=== PATIENT | male | born 1950 | race Caucasian/White ===

== ENCOUNTER → 2017-12-30 | Outpatient (CLI) | payer MEDICARE, BC ==
[~2017-12-30] MED LIST: ASPI1TAB57 PO; ATOR20TA15 PO; FISH100020 PO; FLUT1SPR5 EACH NARE; GLUC500T4 PO; LOSA50TA PO; METO25TA3 PO; MULT-65 PO; PERC5TAB12 PO
[2017-12-30 14:09] LABS: PROTHROMBIN TIME - PATIENT 10.6 SEC (9.8-11.6)
[2017-12-30 14:10] LABS: HEMATOCRIT 40.5 % (39.0-51.0); HEMOGLOBIN 13.9 GM/DL (13.0-17.0); MEAN CELL VOLUME 92.8 FL (80.0-100.0); MEAN CORPUSCULAR HEMOGLOBIN 31.9 PG (27.0-34.0); MEAN CORPUSCULAR HGB CONC 34.4 % (32.0-36.0); MEAN PLATELET VOLUME 7.5 FL (7.0-11.0); PLATELET COUNT 193 TH/MM3 (150-450); RED BLOOD COUNT 4.36 MIL/MM3 (4.50-5.90); RED CELL DISTRIBUTION WIDTH 13.2 % (11.6-17.2); WHITE BLOOD COUNT 3.8 TH/MM3 (4.0-11.0)
[2017-12-30 14:35] LABS: BICARBONATE 33.8 MEQ/L (21.0-32.0); CALCIUM 9.4 MG/DL (8.5-10.1); CREATININE 0.9 MG/DL (0.60-1.30)
--- NOTE | 2017-12-31 13:28 | EKG ---
Date Performed: 12/30/2017 Time Performed: 13:14:50 PTAGE: 67 years EKG: Sinus rhythm NORMAL ECG NO PREVIOUS TRACING DOCTOR: Alexys Batres Interpretating Date/Time 12/31/2017 13:24:53
== END ==
LOC: CPRE 12:47
PROVIDERS: ATTEND Surgery
DX: Z01.810 Encounter for preprocedural cardiovascular examination (principal); Z01.812 Encounter for preprocedural laboratory examination; I65.21 Occlusion and stenosis of right carotid artery
CPT/HCPCS: 36415; 80048; 85027; 85610; 93005

== ENCOUNTER 2018-01-03 06:45 | Inpatient (IN) | payer MEDICARE, BC ==
[~2018-01-03] VITALS: Ht 172.7 cm; Wt 74.5 kg
[~2018-01-03 06:45] MED LIST changes: -METO25TA3 PO; -PERC5TAB12 PO
[2018-01-03] MEDS ORDERED: PROTAMINE SULFATE 50 MG/5 ML VIAL ONE (07:15)
[2018-01-03] MEDS ORDERED: THROMBIN (TOPICAL) 20,000 UNIT SPRAY KIT ONE (07:16)
[2018-01-03] MEDS ORDERED: BUPIVACAINE HCL PF 0.5% 30 ML VIAL ONE (07:16)
[2018-01-03] MEDS ORDERED: HEPARIN SODIUM - SQ 10,000 UNITS/ML VIAL ONE (07:16)
[2018-01-03] MEDS ORDERED: HEPARIN-NS/PF INJ 500 ML ONE (07:16)
[2018-01-03] MEDS ORDERED: INSULIN HUMAN REGULAR 1,000 UNITS/10 ML VIAL SQ PRN (07:45)
[2018-01-03] MEDS ORDERED: CHLORHEXIDINE GLUCONATE 2 % 1 PACK (2 CLOTHS) TOPICAL PRN (07:45)
[2018-01-03] MEDS ORDERED: POVIDONE IODINE 5% (ANTISEPSIS KIT) 4 APPLICATIONS EACH NARE PRN (07:45)
[2018-01-03] MEDS ORDERED: SODIUM CHLORID 0.9% 500 ML IV PRN (07:45)
[2018-01-03] MEDS ORDERED: METOPROLOL TARTRATE 25 MG TAB PO PRN (07:45)
[2018-01-03] MEDS ORDERED: LACTATED RINGER'S 1000 ML IV PRN (07:45)
[2018-01-03] MEDS ORDERED: MIDAZOLAM HCL 2 MG/2 ML VIAL ONE (07:59)
[2018-01-03] MEDS ORDERED: DEXAMETHASONE SOD PHOS 4 MG/ML VIAL ONE (07:59)
[2018-01-03] MEDS ORDERED: FAMOTIDINE 20 MG/2 ML VIAL ONE (08:00)
[2018-01-03] MEDS ORDERED: ACETAMINOPHEN 1000 MG/100 ML 100 ML IV ONE (08:00)
[2018-01-03] MEDS ORDERED: NITROGLYCERIN INJ 5 ML ONE (08:04)
[2018-01-03] MEDS ORDERED: ceFAZolin 2 GM PREMIX 50 ML ONE (08:05)
--- NOTE | 2018-01-03 08:41 | PD.VS.PN ---
Pre-operative Note Pre-operative diagnosis: Asymptomatic R carotid stenosis Planned procedure: R CEA Interval History: R CEA Blood: T&S Imaging: CTA (AMBRIZ) 11/11 reviewed - high grade RIGHT carotid stenosis Orders: NPO Ancef 2g IV OCTOR Post-operative destination: CVICU Operative site marked: Yes Consent: Informed consent has been obtained from Casper Beltran. I have explained the procedure in detail and discussed the risks, benefits, and potential complications. All questions have been answered. Patient contact information: [phone] Tal Hendricks MD Jan 03, 2018 08:41
[2018-01-03] MEDS ORDERED: HEPARIN SODIUM - IV 10,000 UNITS/10 ML VIAL ONE (09:27)
--- NOTE | 2018-01-03 10:59 | HHI.PR ---
cc: Tal Hendricks MD Immediate Post Op Note Procedure Date: Jan 03, 2018 Pre Op Diagnosis: Asymptomatic R carotid stenosis Post Op Diagnosis: Asymptomatic R carotid stenosis Surgeon: Tal Hendricks Stock Preparation Operator(s): Chyna Liu Procedure: R CEA Findings: dense calcific plaque Additional Information: awoke neurologically intact Complications: none Specimen(s) removed: plaque, not for pathology Estimated blood loss: 100mL Anesthesia: General Drains: None Fluids: 1800mL IVF Urinary Output (mLs): 500 Patient to: CVICU Patient Condition: Good Implant/Devices: SEE IMPLANT LOG (if applicable) Date/Time of Procedure: SEE SURGICAL CARE RECORD Tal Hendricks MD Jan 03, 2018 10:58
[2018-01-03] MEDS ORDERED: MORPHINE SULFATE 4 MG/ML INJ IV PUSH PRN (11:00)
[2018-01-03] MEDS ORDERED: SENNOSIDES 8.6 MG TAB PO PRN (11:00)
[2018-01-03] MEDS ORDERED: MAGNESIUM HYDROXIDE SUSP 30 ML CUP PO PRN (11:00)
[2018-01-03] MEDS ORDERED: BISACODYL 10 MG SUPP RECTAL PRN (11:00)
[2018-01-03] MEDS ORDERED: LACTULOSE SYRUP 20 GM/30 ML CUP PO PRN (11:00)
[2018-01-03] MEDS ORDERED: HYDROmorphone HCL 2 MG TAB PO PRN (11:00)
[2018-01-03 11:04] VITALS: BP_SYST 143; BP_SYST 179; BP_DIAS 78; BP_DIAS 92; PULSE 60; RESP 12; TEMP 95; O2SAT 98
[2018-01-03] MEDS ORDERED: PHENYLEPHRINE HCL 10 MG/ML VIAL IV ONE (12:00)
[2018-01-03] MEDS ORDERED: LABETALOL HCL 100 MG/20 ML VIAL IV ONE (12:00)
[2018-01-03] MEDS ORDERED: DEXAMETHASONE SOD PHOS 4 MG/ML VIAL IV ONE (12:00)
[2018-01-03] MEDS ORDERED: PROPOFOL 200 MG/20 ML AMP IV ONE (12:00)
[2018-01-03] MEDS ORDERED: ROCURONIUM INJ 50 MG/5 ML SYRINGE IV PUSH ONE (12:00)
[2018-01-03] MEDS ORDERED: NORMOSOL R INJ 1,000 ML IV ONE (12:00)
[2018-01-03] MEDS ORDERED: NEOSTIGMINE 5 MG/5 ML SYRINGE IV PUSH ONE (12:00)
[2018-01-03] MEDS ORDERED: ePHEDrine/NS 25 MG/5 ML SYRINGE IV ONE (12:00)
[2018-01-03] MEDS ORDERED: SODIUM CHLORID 0.9% 500 ML INJ 500 ML IV ONE (12:00)
[2018-01-03] MEDS ORDERED: GLYCOPYRROLATE 1 MG/5 ML SYRINGE IV PUSH ONE (12:00)
[2018-01-03] MEDS ORDERED: LIDOCAINE HCL 1% PF 5 ML SYRINGE OTHER ONE (12:00)
[2018-01-03] MEDS ORDERED: hydrALAZINE HCL 20 MG/ML VIAL IV ONE ×2 (13:15)
[2018-01-03] MEDS: ENOXAPARIN SODIUM 40 MG/0.4 ML SYRINGE SQ SCH (13:23)
[2018-01-03 15:10] VITALS: BP 112/48; PULSE 77; RESP 17; TEMP 97.6; O2SAT 94
[2018-01-03 15:13] VITALS: PULSE 77
[2018-01-03 19:00] VITALS: BP_SYST 138; BP_SYST 146; BP_DIAS 53; BP_DIAS 68; PULSE 76; RESP 16; TEMP 97.9; O2SAT 96
--- NOTE | 2018-01-03 20:27 | PD.CONS ---
HPI Service Critical Care Medicine Consult Requested By Dr. Hendricks Reason for Consult Hypertension Primary Care Physician Nona Mead MD History of Present Illness 67-year-old male with a medical history significant for hypertension, COPD, cardiovascular disease who underwent right carotid endarterectomy under general anesthesia by Dr. Hendricks, tolerated procedure well and was subsequently transferred to CVICU. Critical care consult was requested for hypertension as patient developed a systolic blood pressure in the 200s. I immediately ordered hydralazine 20 mg IV as well as a Cleviprex drip if needed. I evaluated the patient in CVICU. At that time he was resting in bed comfortably not in any acute distress. He denied any chest pain or shortness of breath. Denied any nausea or headache visual disturbance, focal weakness. Review of Systems ROS Per history of present illness Past Family Social History Allergies: Coded Allergies: No Known Allergies (Unverified , 12/30/17) Past Medical History COPD, chronic bronchus, hypertension, cardiac vascular disease Past Surgical History Shrapnel removal from extremities Reported Medications Please see med rec. Active Ordered Medications Current Medications Protamine Sulfate (Protamine Sulfate Inj) 100 mg STK-MED ONCE .ROUTE ; Start at 07:15; Stop 01/03/18 at 07:16; Status DC Bupivacaine HCl (Marcaine Pf 0.5% Inj) 30 ml STK-MED ONCE .ROUTE Last administered on 01/03/18at 07:16; Start 01/03/18 at 07:16; Stop 01/03/18 at 07:17 ; Status DC Heparin Sodium (Porcine) (Heparin Inj) 10,000 units STK-MED ONCE .ROUTE ; Start 01/03/18 at 07:16; Stop 01/03/18 at 07:17; Status DC Thrombin (Thrombin Top Harmon) 20,000 units STK-MED ONCE .ROUTE Last administered on 01/03/18at 07:16; Start 01/03/18 at 07:16; Stop 01/03/18 at 07:17 ; Status DC Heparin Sodium/ Sodium Chloride 500 ml @ As Directed STK-MED ONCE .ROUTE Last administered on 01/03/18at 07:16; Start 01/03/18 at 07:16; Stop 01/03/18 at 07:17 ; Status DC Lactated Ringer's 1,000 ml @ 30 mls/hr Q24H PRN IV SEE LABEL COMMENTS Last administered on 01/03/18at 07:30; Start 01/03/18 at 07:45; Stop 01/06/18 at 07:44 Sodium Chloride 500 ml @ 30 mls/hr [id number] PRN IV SEE LABEL COMMENTS; Start at 07:45; Stop 01/06/18 at 07:44 Metoprolol Tartrate (Lopressor) 25 mg ASSEM[employer]ER [employer]NCE PRN PO SEE LABEL COMMENTS; Start 01/03/18 at 07:45; Stop 01/06/18 at 07:44 Povidone Iodine (Betadine 5% Antisepsis Kit) 1 applic [employer]CE PRN EACH NARE SEE LABEL COMMENTS Last administered on 01/03/18at 07:30; Start 01/03/18 at 07:45 ; Stop 01/06/18 at 07:44 Chlorhexidine Gluconate (Chlorhexidine 2% Cloth) 3 pack [employer] PRN TOPICAL SEE LABEL COMMENTS Last administered on 01/03/18at 07:00; Start 01/03/18 at 07:45 ; Stop 01/06/18 at 07:44 Insulin Human Regular (NovoLIN R INJ) See Protocol Table ... [employer] PRN SQ SEE PROTOCOL TABLE; Start 01/03/18 at 07:45; Stop 01/06/18 at 07:44 Midazolam HCl (Versed Inj) 2 mg STK-MED ONCE .ROUTE ; Start 01/03/18 at 07:59; Stop 01/03/18 at 08:00; Status DC Dexamethasone Sodium Phosphate (Decadron Inj) 4 mg STK-MED ONCE .ROUTE ; Start 01/03/18 at 07:59; Stop 01/03/18 at 08:00; Status DC Acetaminophen 100 ml @ As Directed STK-MED ONCE IV ; Start 01/03/18 at 08:00; Stop 01/03/18 at 08:01; Status DC Famotidine (Pepcid Inj) 20 mg STK-MED ONCE .ROUTE ; Start 01/03/18 at 08:00; Stop 01/03/18 at 08:01; Status DC Nitroglycerin 5 ml @ As Directed STK-MED ONCE .ROUTE ; Start 01/03/18 at 08:04; Stop 01/03/18 at 08:05; Status DC Cefazolin Sodium/ Dextrose 50 ml @ As Directed STK-MED ONCE .ROUTE Last administered on 01/03/18at 09:23; Start 01/03/18 at 08:05; Stop 01/03/18 at 08:06 ; Status DC Heparin Sodium (Porcine) (Heparin Inj) 10,000 units STK-MED ONCE .ROUTE ; Start 01/03/18 at 09:27; Stop 01/03/18 at 09:28; Status DC Aspirin (Aspirin) 325 mg DAILY PO ; Start 01/04/18 at 09:00 Famotidine (Pepcid) 20 mg BID PO ; Start 01/03/18 at 21:00 Atorvastatin Calcium (Lipitor) 40 mg HS PO ; Start 01/03/18 at 21:00 Oxycodone HCl (Roxicodone) 5 mg Q4H PRN PO PAIN SCALE 1 TO 5; Start 01/03/18 at 11:00 Hydromorphone HCl (Dilaudid) 2 mg Q4H PRN PO PAIN SCALE 6 TO 10; Start at 11:00 Morphine Sulfate (Morphine Inj) 2 mg Q1H PRN IV PUSH BREAKTHROUGH PAIN; Start 01/03/18 at 11:00 Enoxaparin Sodium (Lovenox Inj) 40 mg Q24H SQ Last administered on 01/03/18at 13 :23; Start 01/03/18 at 13:00 Senna/Docusate Sodium (Keyanna-Colace) 1 tab BID PO ; Start 01/03/18 at 21:00 Magnesium Hydroxide (Milk Of Magnesia Liq) 30 ml Q12H PRN PO Mild constipation ; Start 01/03/18 at 11:00 Sennosides (Senokot) 17.2 mg Q12H PRN PO Moderate constipation; Start 01/03/18 at 11:00 Bisacodyl (Dulcolax Supp) 10 mg DAILY PRN RECTAL SEVERE CONSITIPATION; Start at 11:00 Lactulose (Lactulose Liq) 30 ml DAILY PRN PO SEVERE CONSITIPATION; Start at 11:00 Fentanyl Citrate (fentaNYL INJ) 100 mcg STK-MED ONCE .ROUTE ; Start 01/03/18 at 11:26; Stop 01/03/18 at 11:27; Status DC Fentanyl Citrate (fentaNYL INJ) 100 mcg STK-MED ONCE .ROUTE ; Start 01/03/18 at 11:27; Stop 01/03/18 at 11:28; Status DC Fentanyl Citrate (fentaNYL INJ) 100 mcg STK-MED ONCE .ROUTE ; Start 01/03/18 at 11:27; Stop 01/03/18 at 11:28; Status DC Hydralazine HCl (Apresoline Inj) 10 mg NOW ONCE IV Last administered on at 14:30; Start 01/03/18 at 13:15; Stop 01/03/18 at 13:16; Status DC Hydralazine HCl (Apresoline Inj) 20 mg NOW ONCE IV Last administered on at 14:31; Start 01/03/18 at 13:15; Stop 01/03/18 at 13:16; Status DC Clevidipine 50 ml @ 2 mls/hr TITRATE PRN IV High blood pressure; Start at 14:00 Family History Noncontributory at this time Social History Ex-smoker Physical Exam Vital Signs Vital Signs Date Time Temp Pulse Resp B/P (MAP) Pulse Ox O2 Delivery O2 Flow Rate FiO2 01/03/18 15:13 77 01/03/18 15:12 98 Nasal Cannula 3.00 01/03/18 15:10 97.6 77 17 112/48 (69) 94 01/03/18 11:04 98 Nasal Cannula 4.00 01/03/18 11:04 95.0 60 12 143/92 (109) 98 179/78 (111) 01/03/18 07:22 97.9 94 20 219/106 (143) 98 Physical Exam HEENT/Neuro: No pallor or icterus, tongue moist, AG, Awake alert oriented 3 , nonfocal grossly, moving all 4 extremities Neck: No JVD. Gregory over right CEA site noted. Chest/pulmonary: CTA bilaterally Cardiovascular: S1-S2 regular no gallop or murmur GI/abdomen: Soft, nontender, bowel sounds present Extremities: Warm bilaterally, no edema Assessment and Plan Assessment and Plan 67-year-old male with: Asymptomatic carotid stenosis status post right CEA Hypertension COPD Plan Initiated hydralazine when necessary. Will use Cleviprex. As needed for hypertension. Expect blood pressure fluctuations as well as heart rate fluctuations in immediate post carotid endarterectomy state. Critical care will be available as needed and will follow when necessary Further postop recommendations per vascular surgery. Will see prn. Monroe Yoder MD Jan 03, 2018 20:27
[2018-01-03 20:40] VITALS: O2SAT 96
[2018-01-03] MEDS: DOCUSATE SODIUM 50 MG/SENNA 8.6 MG TAB PO SCH (21:16)
[2018-01-03] MEDS: FAMOTIDINE 20 MG TAB PO SCH (21:16)
[2018-01-03] MEDS: ATORVASTATIN 40 MG TAB PO SCH (21:16)
[2018-01-03 23:00] VITALS: BP_SYST 131; BP_SYST 148; BP_DIAS 48; BP_DIAS 79; PULSE 70; PULSE 76; RESP 14; TEMP 98; O2SAT 96
[2018-01-04] VITALS (7 sets, daily range): BP systolic 138–188; BP diastolic 47–83; PULSE 72–102; RESP 14–18; TEMP 98.1–98.7; O2SAT 92–99
[2018-01-04 05:14] LABS: HEMATOCRIT 34.9 % (39.0-51.0); HEMOGLOBIN 12.2 GM/DL (13.0-17.0); MEAN CELL VOLUME 92.6 FL (80.0-100.0); MEAN CORPUSCULAR HEMOGLOBIN 32.5 PG (27.0-34.0); MEAN CORPUSCULAR HGB CONC 35.1 % (32.0-36.0); MEAN PLATELET VOLUME 7.3 FL (7.0-11.0); PLATELET COUNT 190 TH/MM3 (150-450); RED BLOOD COUNT 3.77 MIL/MM3 (4.50-5.90); RED CELL DISTRIBUTION WIDTH 13.2 % (11.6-17.2); WHITE BLOOD COUNT 7.8 TH/MM3 (4.0-11.0)
[2018-01-04 05:40] LABS: BICARBONATE 29.1 MEQ/L (21.0-32.0); CALCIUM 8.5 MG/DL (8.5-10.1); CREATININE 0.64 MG/DL (0.60-1.30)
[2018-01-04] MEDS: FAMOTIDINE 20 MG TAB PO SCH ×2 (08:26→20:03)
[2018-01-04] MEDS: DOCUSATE SODIUM 50 MG/SENNA 8.6 MG TAB PO SCH ×2 (08:26→20:03)
[2018-01-04] MEDS: ASPIRIN 325 MG TAB PO SCH (08:26)
[2018-01-04] MEDS: LOSARTAN 50 MG TAB PO SCH ×2 (09:36→20:05)
--- NOTE | 2018-01-04 10:43 | PD.VS.PN ---
Subjective POD #: 1 Procedure(s): R CEA Subjective/Hospital Course [age]febrile 67/M A&Ox3, NAD, GCS 15 Hypertensive this am Pt w/o any neurological deficits Pt denied headache Incision I/C/D Objective Vitals/I&O Date Time Temp Pulse Resp B/P (MAP) Pulse Ox O2 Delivery O2 Flow Rate FiO2 01/04/18 09:06 75 146/53 01/04/18 08:15 94 Nasal Cannula 3.00 01/04/18 07:00 94 Nasal Cannula 3.00 01/04/18 07:00 98.2 83 18 152/69 (96) 94 162/59 (93) 01/04/18 07:00 88 01/04/18 04:30 72 181/70 01/04/18 03:00 98.1 72 14 138/72 (94) 99 146/54 (84) 01/04/18 03:00 72 01/04/18 03:00 99 Nasal Cannula 4.00 01/03/18 23:00 70 01/03/18 23:00 96 Nasal Cannula 4.00 01/03/18 23:00 98.0 76 14 148/79 (102) 96 131/48 (75) 01/03/18 20:40 96 Nasal Cannula 4.00 01/03/18 19:00 76 01/03/18 19:00 96 Nasal Cannula 4.00 01/03/18 19:00 97.9 76 16 138/68 (91) 96 146/53 (84) 01/03/18 15:13 77 01/03/18 15:12 98 Nasal Cannula 3.00 01/03/18 15:10 97.6 77 17 112/48 (69) 94 01/03/18 11:04 98 Nasal Cannula 4.00 01/03/18 11:04 95.0 60 12 143/92 (109) 98 179/78 (111) 01/04/18 01/04/18 01/04/18 07:00 15:00 23:00 Intake Total 720 ml Output Total 350 ml Balance 370 ml Exam: GENERAL: A&Ox3,NAD,GCS 15 SKIN: Warm and dry. Incision to R neck I/C/D HEAD: Normocephalic. EYES: No scleral icterus. No injection or drainage. NECK: Supple, trachea midline. No JVD, Mild right sided neck swelling at the incision line CARDIOVASCULAR: RRR RESPIRATORY: CTA MUSCULOSKELETAL: No cyanosis, or edema. UE 5/5 LE 5/5 Palpable R/L radial pulses Laboratory Laboratory Tests Test 01/04/18 04:20 White Blood Count 7.8 Red Blood Count 3.77 Hemoglobin 12.2 Hematocrit 34.9 Mean Corpuscular Volume 92.6 Mean Corpuscular Hemoglobin 32.5 Mean Corpuscular Hemoglobin Concent 35.1 Red Cell Distribution Width 13.2 Platelet Count 190 Mean Platelet Volume 7.3 Blood Urea Nitrogen 12 Creatinine 0.64 Random Glucose 115 Calcium Level 8.5 Sodium Level 133 Potassium Level 4.1 Chloride Level 96 Carbon Dioxide Level 29.1 Anion Gap 8 Estimat Glomerular Filtration Rate 124 Assessment and Plan Assessment: (1) Right-sided carotid artery disease (2) Status post carotid endarterectomy Plan 67/M S/P R CEA Hypertensive this am Pt w/o neurological deficits Pt w/o headache Plan D/C A line D/C Morrison- Notify if unable to void in 6H D/C MIVF Pt ok to transfer to CPCU once B/P normalizes and is off PRN medication PT/OOB Continue Pain control D/C planning - tomorrow am Yas Lorenz NP [facility]/ [employer] [phone] Discharge Planning tomorrow am Yas Lorenz Jan 04, 2018 10:43
[2018-01-04] MEDS: ENOXAPARIN SODIUM 40 MG/0.4 ML SYRINGE SQ SCH (12:48)
[2018-01-04] MEDS: hydrALAZINE HCL 20 MG/ML VIAL IV PUSH PRN ×3 (14:26→23:10)
[2018-01-04] MEDS: ATORVASTATIN 40 MG TAB PO SCH (20:03)
[2018-01-05 03:00] VITALS: BP 165/88; PULSE 101; PULSE 97; RESP 14; TEMP 98.6; O2SAT 92
[2018-01-05 07:00] VITALS: BP 204/88; PULSE 108; PULSE 111; RESP 16; TEMP 98.7; O2SAT 95
--- NOTE | 2018-01-05 07:13 | PD.VS.PN ---
Subjective POD #: 2 Procedure(s): R CEA Subjective/Hospital Course neuro ok no swallowing trouble slight R neck fullness pain controlled no UMANZOR Objective Vitals/I&O Date Time Temp Pulse Resp B/P (MAP) Pulse Ox O2 Delivery O2 Flow Rate FiO2 01/05/18 03:00 97 01/05/18 03:00 92 Room Air 01/05/18 03:00 98.6 101 14 165/88 (113) 92 01/04/18 23:00 93 Room Air 01/04/18 23:00 98.5 102 14 147/57 (87) 93 01/04/18 23:00 102 01/04/18 19:00 99 01/04/18 19:00 98.6 99 14 188/83 (118) 93 Arterial Line 01/04/18 19:00 93 Room Air 01/04/18 15:00 95 Nasal Cannula 2.00 Humidified 01/04/18 15:00 86 01/04/18 15:00 98.7 88 18 158/69 (98) 95 143/47 (79) 01/04/18 11:00 98.1 72 18 92 154/53 (86) 01/04/18 11:00 74 01/04/18 11:00 92 Nasal Cannula 1.00 01/04/18 09:06 75 146/53 01/04/18 08:15 94 Nasal Cannula 3.00 01/05/18 01/05/18 01/05/18 07:00 15:00 23:00 Intake Total 240 ml Output Total 400 ml Balance -160 ml Exam: R neck incision ok slight fullness neuro intact Assessment and Plan Assessment: (1) Right-sided carotid artery disease (2) Status post carotid endarterectomy Plan POD#2 s/p R CEA Neuro intact needs better BP control Added lopressor po scheduled and IV prn transfer to CPCU Discharge Planning tomorrow am Tal Hendricks MD Jan 05, 2018 07:13
[2018-01-05] MEDS ORDERED: METOPROLOL TARTRATE 5 MG/5 ML VIAL IV PUSH PRN (07:30)
[2018-01-05] MEDS: LOSARTAN 50 MG TAB PO SCH (08:21)
[2018-01-05] MEDS: DOCUSATE SODIUM 50 MG/SENNA 8.6 MG TAB PO SCH (08:22)
[2018-01-05] MEDS: ASPIRIN 325 MG TAB PO SCH (08:22)
[2018-01-05] MEDS: FAMOTIDINE 20 MG TAB PO SCH (08:22)
[2018-01-05] MEDS ORDERED: METOPROLOL TARTRATE 25 MG TAB PO SCH (09:00)
--- NOTE | 2018-01-05 10:25 | MP ---
cc: STEVEN HENDRICKS MD DATE OF SURGERY 01/03/2018 PRIMARY DIAGNOSIS High-grade asymptomatic right carotid stenosis. POSTOPERATIVE DIAGNOSIS High-grade asymptomatic right carotid stenosis. PROCEDURE Right carotid endarterectomy MEDICATIONS Steven Hendricks MD NET WASHER SURGEON Chyna Guy MD ANESTHESIA General INDICATIONS Mr. Beltran is a 67-year-old gentleman with high-grade right carotid stenosis that is asymptomatic. After discussion was held of the risks and benefits, he was offered a carotid endarterectomy. He was taken to the operating room for this. DESCRIPTION OF THE PROCEDURE Informed consent obtained from the patient. He was taken to the operating room, placed supine on the operating room table and appropriate time-out was taken to ensure the patient's identity, operative site and planned procedure. The administration of antibiotics 2 grams of Ancef was initiated prior to the skin incision and will be discontinued after a single preoperative dose. Everyone in the room agreed with the time-out and we proceeded. His right neck was prepped and draped. An incision made along the anterior border of the sternocleidomastoid, carried down through the subcutaneous tissue with electrocautery. The sternocleidomastoid was mobilized posteriorly. The facial vein was identified and ligated between 3-0 silk ties. The carotid artery was identified and encircled with a vessel loop proximally and then the internal carotid artery, external carotid artery and superior thyroid were all dissected free. The patient was systemically heparinized and once the ACT was confirmed to be more than 250, distal and then proximal control of the carotid artery was obtained with profunda clamps. A longitudinal arteriotomy was made with an 11 blade and extended with Sam scissors. The artery was endarterectomized without difficulty and a nice endpoint was obtained. The endarterectomized artery was then closed with a bovine pericardial patch which was sewn on with running 5-0 Prolene suture. Throughout the entire endarterectomy and patch, there were no neurological changes. The clamp was then flushed and the internal carotid artery clamp was then removed. There was a nice Doppler signal in the internal carotid artery and external carotid artery. The wound was made hemostatic, infiltrated with Marcaine and closed with 2-0 Polysorb, 3-0 Polysorb and 4-0 Monocryl. The sponge and needle counts were correct at the end of the case. At the end of the case, the patient was awoken from anesthesia and was neurologically intact. MD RADHA Fine/ROMEO /6:03 PM /10:07 AM
[2018-01-05 11:00] VITALS: BP 150/77; PULSE 66; PULSE 69; RESP 16; TEMP 98.6; O2SAT 94
--- NOTE | 2018-01-05 12:26 | PD.VS.DC ---
Discharge Summary Admission Date: Jan 03, 2018 at 06:45 Discharge Date: Jan 05, 2018 Admission Diagnosis: (1) Right-sided carotid artery disease Discharge Diagnosis: (1) Right-sided carotid artery disease ICD Codes: I77.9 - Disorder of arteries and arterioles, unspecified (2) Status post carotid endarterectomy ICD Codes: Z98.890 - Other specified postprocedural states Brief History from admission 67/M w a Hx of high grade asymptomatic R carotid stenosis Procedure(s): R CEA Significant Findings GENERAL: A&Ox3,NAD,GCS 15 SKIN: Warm and dry. Incision to R neck I/C/D HEAD: Normocephalic. EYES: No scleral icterus. No injection or drainage. NECK: Supple, trachea midline. No JVD, Mild right sided neck swelling at the incision line CARDIOVASCULAR: RRR RESPIRATORY: CTA MUSCULOSKELETAL: No cyanosis, or edema. UE 5/5 LE 5/5 Palpable R/L radial pulses Denied H/A Laboratory Tests Test 01/04/18 04:20 Red Blood Count 3.77 MIL/MM3 (4.50-5.90) Hemoglobin 12.2 GM/DL (13.0-17.0) Hematocrit 34.9 % (39.0-51.0) Random Glucose 115 MG/DL (74-106) Sodium Level 133 MEQ/L (136-145) Chloride Level 96 MEQ/L (98-107) Hospital Course: 67/M w a Hx of high grade asymptomatic R carotid stenosis Pt S/P R CEA Pt w/o any neurological deficits Pt denied headache POD 1 Afebrile 67/M A&Ox3, NAD, GCS 15 Hypertensive this am Pt w/o any neurological deficits Pt denied headache Incision I/C/D POD 2 neuro ok no swallowing trouble slight R neck fullness pain controlled no UMANZOR Pt with improved B/P Pt medically clear for D/C Pt w/o any neurological deficits Arranged out pt f/u in 1M w/ a surveillance Carotid Duplex Allergies Coded Allergies Type Severity Reaction Last Updated Verified No Known Allergies 12/30/17 No 2/20/18 201/04/18 01/04/18 01/05/18 01/05/18 06:00 18:00 06:00 18:00 06:00 18:00 Intake Total 2400 ml 720 ml 480 ml 240 ml Output Total 980 ml 350 ml 1000 ml 400 ml Balance 1420 ml 370 ml -520 ml -160 ml Intake Oral 600 ml 720 ml 480 ml 240 ml Other 1800 ml Output Urine Total 880 ml 350 ml 1000 ml 400 ml Estimated Blood Loss 100 ml # Bowel Movements 0 1 1 Laboratory Tests Test 01/04/18 04:20 White Blood Count 7.8 TH/MM3 Red Blood Count 3.77 MIL/MM3 Hemoglobin 12.2 GM/DL Hematocrit 34.9 % Mean Corpuscular Volume 92.6 FL Mean Corpuscular Hemoglobin 32.5 PG Mean Corpuscular Hemoglobin Concent 35.1 % Red Cell Distribution Width 13.2 % Platelet Count 190 TH/MM3 Mean Platelet Volume 7.3 FL Blood Urea Nitrogen 12 MG/DL Creatinine 0.64 MG/DL Random Glucose 115 MG/DL Calcium Level 8.5 MG/DL Sodium Level 133 MEQ/L Potassium Level 4.1 MEQ/L Chloride Level 96 MEQ/L Carbon Dioxide Level 29.1 MEQ/L Anion Gap 8 MEQ/L Estimat Glomerular Filtration Rate 124 ML/MIN Orders Procedure Category Date Status Time Type And Screen BBK 01/03/18 Complete 06:55 Protamine Sulfate Inj MED 01/03/18 Complete (Protamine Sulfate 07:15 Bupivacaine Pf 0.5% MED 01/03/18 Complete Inj (Marcaine Pf 0.5 07:16 Heparin Inj (Heparin MED 01/03/18 Complete Inj) 07:16 Thrombin Top [place] MED 01/03/18 Complete (Thrombin Top [place]) 07:16 Heparin-Ns/Pf Inj MED 01/03/18 Complete (Heparin-Ns/Pf Inj) 07:16 Lactated Ringer's MED 01/03/18 Complete 1000 Ml Inj (Lr 1000 M 07:45 Sodium Chlorid 0.9% MED 01/03/18 Complete 500 Ml Inj (Ns 500 M 07:45 Metoprolol Tartrate MED 01/03/18 In Process (Lopressor) 07:45 Povidone Iod 5% MED 01/03/18 In Process Antisepsis Kit 07:45 Chlorhexidine 2% MED 01/03/18 In Process Cloth (Chlorhexidine 07:45 Insulin Human Regular MED 01/03/18 In Process Inj (Novolin R Inj 07:45 Midazolam Inj (Versed MED 01/03/18 Complete Inj) 07:59 Dexamethasone Inj MED 01/03/18 Complete (Decadron Inj) 07:59 Acetaminophen 1000 MED 01/03/18 Complete Mg/100 Ml (Ofirmev 10 08:00 Famotidine Inj MED 01/03/18 Complete (Pepcid Inj) 08:00 Nitroglycerin Inj MED 01/03/18 Complete (Nitroglycerin Inj) 08:04 Cefazolin 2 Gm Premix MED 01/03/18 Complete (Ancef 2 Gm Premix 08:05 Heparin Inj (Heparin MED 01/03/18 Complete Inj) 09:27 Urinary Catheter DOV 01/03/18 Complete Management 09:05 Admit To Inpatient ADMITTING 01/03/18 Transmitted Code Status CODE 01/03/18 Transmitted 10:59 Vital Signs (Adult) DOV 01/03/18 Complete 10:59 Auto Service Dispatcher / ODV 01/03/18 In Process Telemetry 10:59 Activity Oob Ad Kimberly DOV 01/03/18 In Process 10:[address] Maynard DOV 01/03/18 In Process 10:59 Diet Heart Healthy DIET 01/03/18 Transmitted Lunch Basic Metabolic Panel LAB 01/04/18 Complete (Bmp) 06:00 Cbc No Diff, Includes LAB 01/04/18 Complete Plts 06:00 Consult Dry Sander CONS 01/03/18 Transmitted Aspirin (Aspirin) MED 01/04/18 In Process 09:00 Famotidine (Pepcid) MED 01/03/18 In Process 21:00 Atorvastatin (Lipitor) MED 01/03/18 In Process 21:00 Oxycodone (Roxicodone) MED 01/03/18 In Process 11:00 Hydromorphone MED 01/03/18 In Process (Dilaudid) 11:00 Morphine Inj MED 01/03/18 In Process (Morphine Inj) 11:00 Enoxaparin Inj MED 01/03/18 In Process (Lovenox Inj) 13:00 Scd Bilateral/Knee DOV 01/03/18 In Process High 10:59 Docusate Sodium-Senna MED 01/03/18 In Process (Keyanna-Colace) 21:00 Magnesium Hydroxide MED 01/03/18 In Process Liq (Milk Of Magnesi 11:00 Sennosides (Senokot) MED 01/03/18 In Process 11:00 Bisacodyl Supp MED 01/03/18 In Process (Dulcolax Supp) 11:00 Lactulose Liq MED 01/03/18 In Process (Lactulose Liq) 11:00 Inpatient ADMITTING 01/03/18 Transmitted Certification ^ Other Nursing Orders DOV 01/03/18 In Process 10:59 Remove Urinary DOV 01/03/18 In Process Catheter 16:00 Fentanyl Inj MED 01/03/18 Complete (Fentanyl Inj) 11:26 Fentanyl Inj MED 01/03/18 Complete (Fentanyl Inj) 11:27 Fentanyl Inj MED 01/03/18 Complete (Fentanyl Inj) 11:27 (Hub Use Only)Inp Phy CONS 01/03/18 Transmitted Cons/Ref Hydralazine Inj MED 01/03/18 Complete (Apresoline Inj) 13:15 Hydralazine Inj MED 01/03/18 Complete (Apresoline Inj) 13:15 Clevidipine Inj MED 01/03/18 In Process (Cleviprex Inj) 14:00 Am Admit Pre Op Care [facility] 01/03/18 Complete Losartan (Cozaar) MED 01/04/18 In Process 10:00 Sodium Chlorid 0.9% MED 01/03/18 Complete 500 Ml Inj (Ns 500 M 12:00 Normosol R Inj MED 01/03/18 Complete (Normosol R Inj) 12:00 Lidocaine Pf 1% Inj MED 01/03/18 Complete (Xylocaine-Mpf 1% In 12:00 Rocuronium Inj MED 01/03/18 Complete (Zemuron Inj) 12:00 Neostigmine Inj MED 01/03/18 Complete (Prostigmine Inj) 12:00 Glycopyrrolate Inj MED 01/03/18 Complete (Robinul Inj) 12:00 Phenylephrine Inj MED 01/03/18 Complete (Neosynephrine Inj) 12:00 Ephedrine/Ns 25 Mg/5 MED 01/03/18 Complete Ml Syr (Ephedrine/N 12:00 Dexamethasone Inj MED 01/03/18 Complete (Decadron Inj) 12:00 Propofol 200 Mg/20 Ml MED 01/03/18 Complete Inj (Diprivan 200 12:00 Labetalol Inj MED 01/03/18 Complete (Trandate Inj) 12:00 Hydralazine Inj MED 01/04/18 In Process (Apresoline Inj) 14:30 ^ Other Nursing Orders DOV 01/04/18 In Process 17:58 Metoprolol Tartrate MED 01/05/18 In Process (Lopressor) 09:00 Metoprolol Tartrate MED 01/05/18 In Process Inj (Lopressor Inj) 07:30 Vital Signs Date Time Temp Pulse Resp B/P (MAP) Pulse Ox O2 Delivery O2 Flow Rate FiO2 01/05/18 11:00 69 01/05/18 11:00 94 Room Air 01/05/18 11:00 98.6 66 16 150/77 (101) 94 01/05/18 07:00 98.7 111 16 204/88 (126) 95 01/05/18 07:00 108 01/05/18 07:00 95 Room Air 01/05/18 03:00 97 01/05/18 03:00 92 Room Air 01/05/18 03:00 98.6 101 14 165/88 (113) 92 01/04/18 23:00 93 Room Air 01/04/18 23:00 98.5 102 14 147/57 (87) 93 01/04/18 23:00 102 01/04/18 19:00 99 01/04/18 19:00 98.6 99 14 188/83 (118) 93 Arterial Line 01/04/18 19:00 93 Room Air 01/04/18 15:00 95 Nasal Cannula 2.00 Humidified 01/04/18 15:00 86 01/04/18 15:00 98.7 88 18 158/69 (98) 95 143/47 (79) 01/04/18 11:00 98.1 72 18 92 154/53 (86) 01/04/18 11:00 74 01/04/18 11:00 92 Nasal Cannula 1.00 01/04/18 09:06 75 146/53 01/04/18 08:15 94 Nasal Cannula 3.00 01/04/18 07:00 94 Nasal Cannula 3.00 01/04/18 07:00 98.2 83 18 152/69 (96) 94 162/59 (93) 01/04/18 07:00 88 01/04/18 04:30 72 181/70 2/21/18 03:00 98.1 72 14 138/72 (94) 99 146/54 (84) 01/04/18 03:00 72 01/04/18 03:00 99 Nasal Cannula 4.00 01/03/18 23:00 70 01/03/18 23:00 96 Nasal Cannula 4.00 01/03/18 23:00 98.0 76 14 148/79 (102) 96 131/48 (75) 01/03/18 20:40 96 Nasal Cannula 4.00 01/03/18 19:00 76 01/03/18 19:00 96 Nasal Cannula 4.00 01/03/18 19:00 97.9 76 16 138/68 (91) 96 146/53 (84) 01/03/18 15:13 77 01/03/18 15:12 98 Nasal Cannula 3.00 01/03/18 15:10 97.6 77 17 112/48 (69) 94 01/03/18 11:04 98 Nasal Cannula 4.00 01/03/18 11:04 95.0 60 12 143/92 (109) 98 179/78 (111) 01/03/18 07:22 97.9 94 20 219/106 (143) 98 Discharge Condition: Good Discharge Disposition: Discharge Home Discharge Instructions: DIET May resume a heart healthy diet ACTIVITY Activities as tolerated No driving for 2W BATHING NO tub baths/swimming until your incision is fully healed May shower then pat dry incision site WOUND CARE Leave incision open to air Do not apply any creams or ointments to your incision site as it may loosen the surgical glue Call the office to report an increase in redness, swelling or drainage to your incision MEDICATIONS May resume your home medications You were prescribed a narcotic pain medication that may cause constipation- Take with an over the counter stool softener You were prescribed a narcotic pain medication that may cause drowsiness- NO DRIVING while taking your prescribed pain medication Any questions or concerns: Call [facility] [phone] Yas Lorenz Jan 05, 2018 12:26
[2018-01-05] MEDS ORDERED: METO25TA3 PO (12:49)
[2018-01-05] MEDS ORDERED: PERC5TAB12 PO (12:49)
== END 2018-01-05 13:25 | disposition home or self-care (01) | DRG 39 ==
LOC: HSDI 06:45 → HCVI 11:10
PROVIDERS: ADMIT Surgery; ATTEND Surgery
PROC: 03CK0ZZ Extirpation of Matter from Right Internal Carotid Artery, Open Approach (ICD-10-PCS; principal; 2018-01-04)
PROC: 03UK0KZ Supplement Right Internal Carotid Artery with Nonautologous Tissue Substitute, Open Approach (ICD-10-PCS; 2018-01-04)
DX: I65.21 Occlusion and stenosis of right carotid artery (principal); J44.9 Chronic obstructive pulmonary disease, unspecified; I10 Essential (primary) hypertension; E78.5 Hyperlipidemia, unspecified; Z87.891 Personal history of nicotine dependence
CPT/HCPCS: 80048; 85027; 86850; 86900; 86901; C1768; C9248; J0131; J0360; J0690; J1100; J1644; J1650; J2250; J2370; J2710; J2720; J3010; J7040; J7120